=== PATIENT | male | born 1965 | race African-American/Black ===

== ENCOUNTER 2016-11-15 11:23 | Outpatient (CLI) ==
[2016-07-05 13:05] VITALS: BMI 31.0
[2016-11-15 11:43] LABS: BASOPHILS % (AUTO) 0.2 % (0.0-3.0); EOSINOPHILS # (AUTO) 0.1 K/ul (0.0-0.7); EOSINOPHILS % (AUTO) 1.3 % (0.0-7.0); HEMATOCRIT 41.6 % (42.0-52.0); HEMOGLOBIN 14.6 g/dl (14.0-18.0); IMMATURE GRANULOCYTE % (AUTO) 0.2 % (0.0-5.0); LYMPHOCYTES # (AUTO) 1.4 K/uL (0.60-3.4); LYMPHOCYTES % (AUTO) 26.3 (10.0-50.0); MEAN CORPUSCULAR HEMOGLOBIN 31.7 pg (27.0-31.0); MEAN CORPUSCULAR HGB CONC 35.1 (31.8-35.4); MEAN CORPUSCULAR VOLUME 90.2 fl (80.0-94.0); MONOCYTES # (AUTO) 0.6 K/uL (0.4-2.0); MONOCYTES % (AUTO) 11.8 (0-10); NEUTROPHILS # (AUTO) 3.3 K/ul (2.0-6.9); NEUTROPHILS % (AUTO) 60.2; PLATELET COUNT 139 10^3/uL (140-440); RED BLOOD COUNT 4.61 10^6/ul (4.70-6.10); WHITE BLOOD COUNT 5.43 K/ul (4.2-10.2)
[2016-11-15 12:03] LABS: ALBUMIN 3.5 g/dL (3.4-5.0); ALBUMIN/GLOBULIN RATIO 1.09; BILIRUBIN,TOTAL 0.66 mg/dL (0.00-1.20); BUN/CREATININE RATIO 12.94; CALCIUM 9.6 mg/dL (8.2-10.2); CHOL/HDL RATIO 2.6 (4.5-6.4); CREATININE 0.85 mg/dL (0.60-1.10); TOTAL PROTEIN 6.7 g/dL (6.4-8.2)
== END 2016-11-15 11:24 | disposition home or self-care (01) ==
LOC: LAB 11:23
PROVIDERS: ATTEND Nurse Practitioner Family
DX: E78.5 Hyperlipidemia, unspecified (principal); E11.9 Type 2 diabetes mellitus without complications; K21.9 Gastro-esophageal reflux disease without esophagitis; K76.0 Fatty (change of) liver, not elsewhere classified; Z87.19 Personal history of other diseases of the digestive system
CPT/HCPCS: 36415; 80053; 80061; 82150; 83036; 83690; 85025

== ENCOUNTER 2016-11-19 07:14 | Outpatient (CLI) ==
[2016-07-05 13:05] VITALS: BMI 31.0
--- NOTE | 2016-11-19 08:22 | US ---
EXAM: ULTRASOUND ABDOMEN LIMITED HISTORY: Fatty liver FINDINGS: Ultrasound abdomen, limited. Liver size was normal at 13 cm. Liver parenchyma demonstra sandee diffuse increased sound attenuation which can be consistent with steatosis. No focal hepatic les ion or evidence of intrahepatic biliary dilatation was identified. The portal vein is patent and he patopedal. No gallstones or gallbladder sludge identified. The gallbladder wall thickness was normal at 0.23 c m. The common bile duct diameter was normal at 0.42 cm. The pancreas was not adequately seen. No obvious ascites. IMPRESSION: Sonographic findings consistent with fatty liver. Liver size appears grossly normal. No gallbladde r pathology.
== END 2016-11-19 07:15 | disposition home or self-care (01) ==
LOC: RAD 07:14
PROVIDERS: ATTEND Nurse Practitioner Family
DX: K76.0 Fatty (change of) liver, not elsewhere classified (principal)

== ENCOUNTER 2018-03-02 16:11 | Outpatient (CLI) ==
[2016-07-05 13:05] VITALS: BMI 31.0
== END 2018-03-02 16:12 | disposition home or self-care (01) ==
LOC: RHC-LAB 16:11
PROVIDERS: ATTEND Nurse Practitioner Family
DX: D64.9 Anemia, unspecified (principal); E78.5 Hyperlipidemia, unspecified; Z12.5 Encounter for screening for malignant neoplasm of prostate
CPT/HCPCS: 36415; 80053; 80061; 84443; 85025

== ENCOUNTER 2018-07-04 10:05 | Outpatient (CLI) ==
[2016-07-05 13:05] VITALS: BMI 31.0
== END 2018-07-04 10:06 | disposition home or self-care (01) ==
LOC: RHC-LAB 10:05
PROVIDERS: ATTEND Nurse Practitioner Family
DX: Z02.6 Encounter for examination for insurance purposes (principal)
CPT/HCPCS: 36415; 82607; 82728; 82746; 83540; 83550; 84466; 85025; 85045

== ENCOUNTER 2018-09-27 10:08 | Outpatient (CLI) ==
[2016-07-05 13:05] VITALS: BMI 31.0
--- NOTE | 2018-09-27 10:32 | DI ---
EXAM: LEFT ELBOW HISTORY: Left elbow pain FINDINGS: Left elbow three-view. Bone and joint structures appear normal. There is no joint disloc ation or effusion. No fracture is identified. Bone density and soft tissues are within normal limit s. IMPRESSION: Findings within normal limits.
== END 2018-09-27 10:09 | disposition home or self-care (01) ==
LOC: RAD 10:08
PROVIDERS: ATTEND Nurse Practitioner Family
DX: M25.522 Pain in left elbow (principal)

== ENCOUNTER 2018-09-27 11:01 | Outpatient (CLI) ==
[2016-07-05 13:05] VITALS: BMI 31.0
== END 2018-09-27 11:02 | disposition home or self-care (01) ==
LOC: RHC-LAB 11:01
PROVIDERS: ATTEND Nurse Practitioner Family
DX: D50.9 Iron deficiency anemia, unspecified (principal); E78.5 Hyperlipidemia, unspecified; M25.522 Pain in left elbow
CPT/HCPCS: 36415; 80053; 80061; 85025